=== PATIENT | male | born 1945 | race Caucasian/White ===

== ENCOUNTER 2022-11-26 12:24 | Observation (INO) | payer MEDICARE, SELFPAY ==
[2022-11-26] VITALS (23 sets, daily range): BP systolic 155–187; BP diastolic 84–110; PULSE 78–98; RESP 7–20; TEMP 36.5–36.8; O2SAT 91–97; BMI 24.7
--- NOTE | ~2022-11-26 | XR_ITS ---
EXAMINATION: XR barium swallow modified DATE: 11/27/2022 10:12 INDICATION: Slurred speech. Dysphagia. TECHNIQUE: The patient was given barium-containing material of multiple consistencies to swallow by t alexey speech pathologist while I performed fluoroscopy. Fluoroscopy exposure time was 1.8 minutes. The n umber of fluoroscopy images saved to the PACS was 1. Dose-area product was 1.243 Gy-cm^2. FINDINGS: There is slow movement during the oral stage. There was one episode of laryngeal penetration with thi n liquids. IMPRESSION: 1. One episode of laryngeal penetration with thin liquids. 2. Please refer to the speech therapy report for recommendations. Reviewed, dictated and finalized at location A.
--- NOTE | ~2022-11-26 | CT_ITS ---
EXAMINATION: CTA brain carotid DATE: 11/26/2022 15:05 INDICATION: CVA TECHNIQUE: Computed tomographic angiography (CTA) of the head was performed without and with 100 mL O mnipaque-350 intravenous contrast. CTA of the neck was performed with intravenous contrast. Automated exposure control and iterative reconstruction technique were employed. The dose-length product was 1 721.12 mGy-cm. Maximum intensity projection and volume rendered 3D-reconstructions were created by urvashi chowdary technologist on a separate workstation. COMPARISON: None. FINDINGS: CT BRAIN: No acute large vessel infarct, intracranial hemorrhage, mass, or hydrocephalus. Mild atrophy and mode rate chronic white matter change. Atherosclerotic intracranial calcification. CTA HEAD: No large vessel occlusion, aneurysm, high flow vascular malformation, nidus or extravasation. CTA NECK: Aortic arch and proximal great vessels: Atherosclerotic calcifications at the visualized aortic arch and proximal great vessels. Right common carotid, carotid bifurcation, and internal carotid artery: Calcified plaque at the bifur cation.There is 0% stenosis of the proximal right internal carotid artery relative to normal distal a rtery lumen diameter (NASCET criteria). Left common carotid, carotid bifurcation, and internal carotid artery: Calcified plaque at the bifurc ation.There is 0% stenosis of the proximal left internal carotid artery relative to normal distal art miguelito lumen diameter (NASCET criteria). Vertebral arteries: No significant plaque or stenosis. Right vertebral artery is dominant, Other findings: Cervical spondylosis. 1.4 cm left thyroid nodule that requires no additional evaluati on calcified pulmonary granulomas. Emphysematous change. IMPRESSION: No acute large vessel infarct. No large vessel occlusion. No significant carotid or vertebral stenosi s. Reviewed, dictated and finalized at location K. IMPRESSION: No acute large vessel infarct. No large vessel occlusion. No significant caroti d or vertebral stenosis.
--- NOTE | ~2022-11-26 | MR_ITS ---
EXAMINATION: MR brain/brain stem wo/w con DATE: 11/27/2022 09:56 INDICATION: Stroke with right-sided weakness, facial droop and slurred speech TECHNIQUE: Magnetic resonance imaging (MRI) of the brain and brainstem was performed without and with 15 mL Multihance intravenous contrast. Sequences included sagittal and axial T1-weighted SE, axial d iffusion-weighted FS SE, axial T2*-weighted GRE, axial 3D SWAN, axial T2-weighted FLAIR, and axial T2 -weighted FSE. Postcontrast axial and coronal T1-weighted SE was obtained. Apparent diffusion coeffic ient (ADC) maps were created. COMPARISON: None. FINDINGS: Region of restricted diffusion increased T2 signal consistent with acute infarct extending from the c ephalad aspect of the left lentiform nucleus into the posterior left frontal lobe perera radiata. No intracranial hemorrhage or abnormal intracranial mass lesion. There are additional scattered areas of nonspecific increased T2-weighted signal intensity in the cerebral white matter, predominantly invol ving the deep and periventricular white matter. There are no intraparenchymal signal abnormalities se en on the other pulse sequences. The ventricles are symmetric and normal in size. There are no abnorm al extra-axial fluid collections. Flow voids are seen in the cerebral arteries on the T2-weighted seq uences consistent with their expected patency. Right vertebral artery is dominant. Mild mucosal thick ening in the paranasal sinuses. Visualized orbits and soft tissues are unremarkable. There are no are as of abnormal enhancement on the post contrast images. IMPRESSION: 1. Acute infarct extending from the left lentiform nucleus into the posterior left frontal lobe coron a radiata. Reviewed, dictated and finalized at location A. IMPRESSION: 1. Acute infarct extending from the left lentiform nucleus into the posterior l eft frontal lobe perera radiata.
[2022-11-26 12:46] LABS: Glucose Point of Care 99 mg/dl (65-105)
--- NOTE | 2022-11-26 12:47 | ED.NEUROSD ---
HPI - Neuro Symptoms/Deficit General Chief Complaint: Suspected CVA Stated Complaint: possible cva Time Seen by Provider: 11/26/22 12:31 History of Present Illness HPI Narrative: 77-year-old male presented to the emergency department for evaluation for slurred speech right facial droop and right-sided weakness that has been ongoing since . Patient states symptoms started midday on and have potentially been getting worse. Patient states that he did not present to the emergency department because he was suspecting dehydration. Patient has no prior history of CVA. Patient denies any prior history of high cholesterol hypertension or diabetes. Family states that the patient does not have frequent follow-up with physicians. Related Data Home Medications Medication Instructions Recorded Confirmed No Home Medications 11/26/22 11/26/22 Allergies Allergy/AdvReac Type Severity Reaction Status Date / Time No Known Allergies Allergy Verified 11/26/22 12:26 Review of Systems Review of Systems: All systems reviewed & are unremarkable except as noted in HPI and below PMFSH Social History Social History Smoking status: Never smoker Second hand tobacco smoke exposure: No Alcohol intake: never Substance use: never Substance use type: does not use Lack of Transportation: No Lack of Food: Never True Current Housing: I Have Housing Concerned About Future Housing: No Difficulty Paying Gas/Electric Bills: No Difficulty Paying for Meds: No Currently Unemployed: No Education: High School Diploma/GED Difficulty w/ Childcare or Family Care: No Spiritual care concerns: No Exam Narrative: APPEARANCE: no pain, no distress, well-nourished. HEAD: normocephalic, atraumatic. EYES: PERRLA/EOMI, conjunctivae clear. NOSE: Normal no drainage NECK: Supple. No adenopathy, no masses. RESPIRATORY: Airway patent, respirations nonlabored. Clear to auscultation bilaterally, no rales, rhonchi, wheezing. CARDIOVASCULAR: Regular rate and rhythm without murmurs rubs or gallops. ABDOMINAL: Soft, nontender, nondistended, normal bowel sounds MUSCULOSKELETAL: Moves all extremities. Strength/ROM intact, No edema, No calf tenderness. NEURO: Alert. Cranial nerves II through XII intact. Slurred speech, right facial droop, right ataxia and weakness in the upper and lower extremity. SKIN: Warm, dry. Normal Color Course Course Emergency Course: 77-year-old male presented the ED for evaluation of right facial droop and right arm weakness but was far outside the window for tPA. Patient was afebrile with no leukocytosis. Patient's INR was 1.1. Patient's chemistries are similar to his baseline. UA showed no evidence of infection. Head CT showed no acute stroke or large thrombus. Patient's NIH score was 10. Case was discussed with neurology and they are comfortable with the plan to admit the patient and they will see the patient as consult. Case was discussed with the hospitalist and patient was accepted for admission. MRI was ordered at time of admission. Patient and family were updated on the results of the work-up and plan for admission. All questions concerns were addressed. Vital Signs Vital signs: Vital Signs Respiratory Rate 7 L 11/26/22 12:36 Temperature 98.2 F 11/26/22 12:40 Pulse Rate 89 11/26/22 17:42 Respiratory Rate 20 11/26/22 17:42 Blood Pressure 166/106 H 11/26/22 17:42 Pulse Oximetry 95 11/26/22 17:42 Oxygen Delivery Room Air 11/26/22 12:40 MDM - Neuro Symptoms/Deficit Lab Data 11/26/22 12:52 11/26/22 12:52 Labs: Lab Results 11/26/22 11/26/22 11/26/22 Range/Units 12:38 12:52 12:52 WBC 6.3 (4.5-10.0) K/mm3 RBC 5.80 (4.6-6.20) M/mm3 Hgb 17.1 (14.0-18.0) g/dL Hct 50.6 (42.0-52.0) % MCV 87.2 (80-100) fl MCH 29.5 (26-34) pg MCHC 33.8 (32-36) g/dl RDW 13.2 (11.5-14.5) % Plt Count 27
[2022-11-26 13:00] LABS: Basophils Percent Auto 0.5 % (0.2-1.2); Eosinophils Absolute Auto 0.1 K/mm3 (0-0.3); Hematocrit 50.6 % (42.0-52.0); Hemoglobin 17.1 g/dL (14.0-18.0); Immature Granulocyte Absolute 0.01 K/mm3 (0.00-0.031); Immature Granulocyte Percent A 0.2 % (0-0.5); Lymphocytes Absolute Auto 1.36 K/mm3 (0.9-3.2); Lymphocytes Percent Auto 21.7 % (18.3-44.2); Mean Corpuscular HGB Conc 33.8 g/dl (32-36); Mean Corpuscular Hemoglobin 29.5 pg (26-34); Mean Corpuscular Volume 87.2 fl (80-100); Mean Platelet Volume 9.4 fl (7.4-10.4); Monocytes Absolute Auto 0.6 K/mm3 (0.1-0.6); Monocytes Percent Auto 9.7 % (2.6-8.5); Neutrophils Absolute Auto 4.2 K/mm3 (1.3-6.7); Neutrophils Percent Auto 66.9 % (45.5-73.1); Platelet Count Result 274 k/mm3 (150-375); Red Cell Distribution Width 13.2 % (11.5-14.5); White Blood Count 6.3 K/mm3 (4.5-10.0)
[2022-11-26 13:10] LABS: INR 1.1; Prothrombin Time 13.9 Seconds (11.1-14.7)
[2022-11-26 13:11] LABS: Partial Thromboplastin Time 21.9 SECONDS (22.3-36.8)
[2022-11-26 13:13] LABS: Appearance Urine Clear (Clear); Bilirubin Urine Negative (Negative); Blood Urine Negative (Negative); Color Urine Yellow (Yellow); Glucose Urine UA Negative (Negative); Ketones Urine Trace mg/dL (Negative); Leukocyte Esterase Ur Negative LEU/UL (Negative); Nitrate Urine Negative (Negative); Protein Urine Negative (Negative); Specific Grav Ur 1.007 (1.001-1.035)
[2022-11-26 13:15] LABS: Alanine Aminotransferase 44 U/L (6-50); Albumin Level 4.8 g/dL (3.5-5.1); Alkaline Phosphatase 77 U/L (38-126); Anion Gap 12 mmol/L (8-16); Aspartate Amino Transferase 34 U/L (17-59); Bilirubin,Total 2.1 mg/dL (0.2-1.3); Blood Urea Nitrogen 9 mg/dL (9-20); Calcium 9.7 mg/dL (8.4-10.2); Carbon Dioxide 26 mmol/L (22-30); Chloride 101 mmol/L (98-107); Glucose 102 mg/dL (65-110); Potassium 3.7 mmol/L (3.4-5.0); Sodium 139 mmol/L (137-145)
[2022-11-26 13:25] LABS: Add Urine Microscopic? NO
[2022-11-26 14:27] LABS: Estimated CRCL calculation 86 ml/min; Estimated Glomerular Filt Rate > 60
[2022-11-26] MEDS: ASPIRIN 81 MG CHEWABLE TABLET 324 MG PO (15:55)
--- NOTE | 2022-11-26 16:00 | PM.IMHP ---
H&P: HPI History of Present Illness Date/Time: 11/26/22 16:00 Chief Complaint: Right-sided weakness, facial droop, slurred speech. Narrative: This is a very pleasant 77-year-old male with no reported medical history who presented to the emergency department from home for evaluation of right-sided weakness, facial droop, and slurred speech. The patient provides the following history. He has not been to a doctor for many years. He is typically very active and independent; last week he and his drove to [place] to berry picker and antique sewing machine from a relative. Three days ago on he took his to the chiropractor and he seemed to be just fine at that time. Later on in the afternoon while they were having a conversation the noticed that his speech seemed to be slurred and that he was having occasional difficulties getting out the words that he wanted to say. His speech issues improved as the day progressed but never fully resolved. On Sunday he noticed weakness in the right arm and leg and he seemed to be having difficulties walking correctly. Today his speech was more slurred and he had evidence of right-sided mouth droop and he was brought in for evaluation. Initially the patient thought he was dehydrated as he tends not to drink much water and apparently that is why he had not come in earlier. He denies syncope, near syncope, auditory and visual changes, paresthesias, and difficulty swallowing. He also denies palpitations and sensations of racing heart. He has not noticed any swelling of the lower legs and denies calf pain. He has no known history of hypertension, hyperlipidemia, cardiac disease or dysrhythmia, or diabetes. In the ED: Blood pressure was 183/101 on arrival to triage and it has been consistently in the 160s to 180 systolic. Aside from a total bilirubin of 2.1, his labs were really unremarkable. CTA of the head and neck showed no acute large vessel infarct, large vessel occlusion, or significant carotid or vertebral stenosis. Mild atrophy, moderate chronic white matter change, and atherosclerotic intracranial calcifications were noted. He was given a dose of aspirin in the emergency department and he is being admitted in this setting for close monitoring, further workup, and neurology consultation. Review of Systems Review of Systems: Twelve systems were reviewed. No fever, chills, or sweats. He had COVID a few months ago and has been feeling well since that time. No exertional chest pain shortness a breath. No syncope or near syncope. No nausea, vomiting, diarrhea, or dysuria. No rash or pruritus. He denies abdominal pain. No dysuria. Except as documented, all other systems were reviewed and are negative. [facility] Past Medical History Medical History (Updated 11/26/22 @ 22:14 by Re Jansen PA-C) Skin cancer Surgical History Surgical History (Updated 11/26/22 @ 22:14 by Re Jansen PA-C) Status post surgical removal of malignant neoplasm of skin Scalp. Family History Family History (Updated 11/26/22 @ 22:14 by Re Jansen PA-C) Mother Diabetes mellitus Grandparent Cerebrovascular accident Social History Social History (Updated 11/26/22 @ 22:16 by Re Jansen PA-C) Social History: Surrogate medical decision maker: Araceli Rolle, spouse. Code status: Full code. Smoking status: Former smoker Second hand tobacco smoke exposure: No Additional smoking assessment comments: Remote smoker, quit 40 years ago. Alcohol intake: never Substance use: never Substance use type: does not use Lack of Transportation: No Lack of Food: Never True Current Housing: I Have Housing Concerned About Future Housing: No Difficulty Paying Gas/Electric Bills: No Difficulty Paying for Meds: No Currently Unemployed: No Education: High School Diploma/GED Difficulty w/ Childcare or Family Care: No Additional living arrangements comments: Lives with spouse in [facility]
--- NOTE | 2022-11-26 18:33 | PC.NURSE ---
This patient, Sheng Rolle, was admitted to Medical Room 343-01. Patient/family oriented to hospital policies and general routines including ID bracelet, bed and alarms, visiting hours, pain management, procedures, bathroom and other care routines, personal items, smoking policy, room service/diet, and visiting hours. Information on how to activate the Rapid Response Team has been discussed. Patient/Family are encouraged to report perceived risks to care and to ask questions if they do not understand what they are told or what they should do.
--- NOTE | 2022-11-26 22:20 | ECG_ITS ---
Measurements Intervals [place] Rate: 91 P: 2 RI: 191 QRS: -23 QRSD: 112 T: 0 QT: 362 QTc: 446 Interpretive Statements SINUS RHYTHM BORDERLINE LEFT AXIS DEVIATION [QRS AXIS < -20] PREVIOUS ANTEROSEPTAL WA ABNORMAL ECG NO PREVIOUS ECG AVAILABLE FOR COMPARISON Electronically Signed On 11-27-2022 7:02:23 CDT by Regulo Owens M.D.
[2022-11-27] VITALS (10 sets, daily range): BP systolic 148–175; BP diastolic 86–102; PULSE 76–97; RESP 18–20; TEMP 36.7–36.8; O2SAT 94–97
[2022-11-27 06:09] LABS: Potassium 3.6 mmol/L (3.4-5.0)
[2022-11-27 06:15] LABS: Anion Gap 10 mmol/L (8-16); Blood Urea Nitrogen 12 mg/dL (9-20); Calcium 9.3 mg/dL (8.4-10.2); Carbon Dioxide 27 mmol/L (22-30); Chloride 102 mmol/L (98-107); Cholesterol 202 mg/dL (0-200); Estimated CRCL calculation 86 ml/min; Estimated Glomerular Filt Rate > 60; Glucose 87 mg/dL (65-110); HDL Direct 32 mg/dL; Magnesium 2.1 mg/dL (1.6-2.3); Sodium 139 mmol/L (137-145); Triglycerides 138 mg/dL (<150)
[2022-11-27 06:19] LABS: LDL Cholesterol Direct 132 mg/dL
[2022-11-27 07:18] LABS: Thyroid Stimulating Hormone Reflex 0.775 uIU/mL (0.465-4.68)
--- NOTE | 2022-11-27 09:28 | PM.IMPN ---
Progress Note: A&P Assessment and Plan (1) Acute CVA (cerebrovascular accident): Code(s): I63.9 - Cerebral infarction, unspecified Status: Acute Assessment and Plan: Patient presents with right-sided mouth droop, slurred speech, difficulties with word finding, and right-sided weakness and ataxia. Symptoms started on and well outside the window for tPA. CTA of the head and neck did not show any evidence of stroke or large vessel occlusion but noted moderate chronic white matter change in atherosclerotic intracranial calcifications. Blood pressures have also been running quite high which puts him at risk for stroke. No known history of cardiac dysrhythmia and he denies symptoms of such though will continue to monitor closely on telemetry. Brain MRI shows acute infarct extending from left lentiform nucleus to posterior left frontal lobe perera radiata. echocardiogram without ASD or PFO. ASA 325 mg PO given in ED and pt continued on aspirin 81 mg daily. Plavix 300 mg PO x1 given today, continue plavix 75 mg PO daily x 6 weeks. lipid panel- LDL 132, triglycerides 138, HDL 32. Lipitor 40 mg PO daily started. fasting glucose 89 and stable. Modified swallow study completed- bite sized, regular thin liquid diet. Heart healthy. Continue neurologic checks q.4 hours. PT/OT/ST consulted. Neurology also consulted for their input. (2) Hypertension: Code(s): I10 - Essential (primary) hypertension Status: Acute Assessment and Plan: Blood pressures have been running in the 160s to 180s systolic consistently. Stroke symptoms started on of last week. Start losartan 50 mg PO daily PRN hydralazine IV 10 mg SBP>185. Avoid hypotension. (3) Serum total bilirubin elevated: Code(s): R17 - Unspecified jaundice Status: Acute Assessment and Plan: Total bilirubin is 2.1, may be Gilbert's. Abdominal exam is benign. Repeat CMP tomorrow. No jaundice. (4) Hyperlipidemia: Code(s): E78.5 - Hyperlipidemia, unspecified Status: Acute Assessment and Plan: As above. Lipitor high-dose initiated. Plan CODE STATUS: FULL CODE Discharge disposition: from home. PT/OT recommendations appreciated. Time Spent With Patient Time: I discussed extensively with the patient and plan of care, goals of care, lifestyle modifications, diet, and medications. Time with patient: 25 - 35 minutes Subjective Date/time seen: 11/27/22 09:28 Interval history: Patient reports slurred speech and weakness to right arm and leg are unchanged. His is at bedside and reports he has some trouble finding words. No s/s coughing with eating or drinking. Modified swallow evaluation was without aspiration signs. He has not seen a primary care provider in more than 20 years. Review of Systems Review of Systems: All systems reviewed & are unremarkable except as noted in HPI and below Exam Narrative: General: Well-developed, nontoxic-appearing adult male lying in bed. HEENT: Normocephalic. Atraumatic. PERRL, EOMI. Sclera anicteric. Oral mucosa moist. Oropharynx clear. Neck: Supple. No carotid bruits. Respiratory: Lungs are clear to auscultation bilaterally. RR regular and unlabored. Cardiovascular: Regular rate and rhythm with S1-S2. No significant murmur. Gastrointestinal: Abdomen is soft, nontender, and nondistended with positive bowel sounds. Skin: Warm and dry. Scar on the scalp from prior resection of skin cancer. Scattered lesions on the face and scalp which may very well be skin cancer. He has dry and flaking skin with some evidence of seborrhea as well. Extremities: No cyanosis, clubbing, or edema. Radial and pedal pulses intact. No knots or cords. Neurological: Alert and oriented x4. Cranial nerves 2-12 intact. Speech is slurred with evidence of word-finding difficulties. Mild right-sided mouth droop. No lid lag. he has mild drift wit
--- NOTE | 2022-11-27 09:44 | PCSTNOTE ---
Please refer to the Bedside Swallow Evaluation/Communication in the EMR. Please note, silent aspiration cannot be ruled out at bedside.
--- NOTE | 2022-11-27 12:52 | WPDNEURCNPN ---
Assessment and Plan Assessment and plan (1) Acute CVA (cerebrovascular accident): Code(s): I63.9 - Cerebral infarction, unspecified Status: Acute Plan Acute subcortical stroke involving the left lentiform nucleus posterior left frontal lobe coronal radiata with neurological deficit as documented, CTA of the brain is negative for any acute occlusion of major territorial vessels will need the aspirin and Plavix for 6 weeks in addition to control of the hypertension and the cholesterol along with physical therapy evaluation. will need the echocardiogram as well Consult date: 11/27/22 HPI: Sheng Rolle is a 77 year old male admitted to the hospital through the emergency room for the evaluation of slurred speech with right facial droop and right-sided weakness ongoing since but with gradual worsening though he did not present to the emergency room as he suspected it was related to his dehydration. Patient has not been taking any home medication he is not allergic to any medications, he is not alcohol intake and does not smoke on [place] exam in the emergency room exam was with slurred speech right facial droop right-sided ataxia and weakness of the upper and lower extremity again on the right side vital signs were normal except blood pressure 166/106 routine lab was normal stroke scale was only 1 , head neck CTA was negative with no involvement of the any large vessel, but MRI today documented acute infarct extending from the left lentiform nucleus into the posterior left frontal lobe coronal radiata that is subcortical infarct PMFSH Past Medical History Medical History (Updated 11/26/22 @ 22:14 by Re Jansen PA-C) Skin cancer Surgical History Surgical History (Updated 11/26/22 @ 22:14 by Re Jansen PA-C) Status post surgical removal of malignant neoplasm of skin Scalp. Family History Family History (Updated 11/26/22 @ 22:14 by Re Jansen PA-C) Mother Diabetes mellitus Grandparent Cerebrovascular accident Social History Social History (Updated 11/26/22 @ 22:16 by Re Jansen PA-C) Social History: Surrogate medical decision maker: Araceli Rolle, spouse. Code status: Full code. Smoking status: Former smoker Second hand tobacco smoke exposure: No Additional smoking assessment comments: Remote smoker, quit 40 years ago. Alcohol intake: never Substance use: never Substance use type: does not use Lack of Transportation: No Lack of Food: Never True Current Housing: I Have Housing Concerned About Future Housing: No Difficulty Paying Gas/Electric Bills: No Difficulty Paying for Meds: No Currently Unemployed: No Education: High School Diploma/GED Difficulty w/ Childcare or Family Care: No Additional living arrangements comments: Lives with spouse in [place]. Additional occupation/education comments: Retired from [employer]. Spiritual care concerns: No Meds Home Medications and Allergies Home Medications Medication Instructions Recorded Confirmed Type No Home Medications 11/26/22 11/26/22 History Allergies Allergy/AdvReac Type Severity Reaction Status Date / Time No Known Allergies Allergy Verified 11/26/22 12:26 Vital Signs Vital Signs - 24 hr 11/26/22 14:08 11/26/22 13:00 11/26/22 13:15 Temperature Pulse Rate 80 92 86 Respiratory Rate 16 15 18 Blood Pressure 155/107 H Pulse Oximetry 94 96 Oxygen Delivery 11/26/22 13:30 11/26/22 13:32 11/26/22 13:45 Temperature Pulse Rate 85 80 81 Respiratory Rate 17 15 15 Blood Pressure 155/107 H Pulse Oximetry 95 91 94 Oxygen Delivery 11/26/22 14:00 11/26/22 14:15 11/26/22 14:16 Temperature Pulse Rate 87 82 Respiratory Rate 19 14 Blood Pressure 162/104 H Pulse Oximetry 93 93 92 Oxygen Delivery 11/26/22 14:30 11/26/22 15:07 11/26/22 15:08 Temperature Pulse Rate 83 80 Respiratory
[2022-11-27] MEDS: CLOPIDOGREL BISULFATE 300 MG TABLET PO (14:21)
[2022-11-27] MEDS: ATORVASTATIN 40 MG TABLET PO (14:21)
[2022-11-27] MEDS: LOSARTAN POTASSIUM 50 MG TABLET PO (18:27)
--- NOTE | 2022-11-27 22:27 | ECHO_ITS ---
Patient Info Name: Sheng Rolle Age: 77 years : 1945 Gender: Male Ht: 72 in Wt: 182 lbs BSA: 2.05 m2 HR: 88 bpm BP: 148 / 89 mmHg Technical Quality: Fair Exam Date: 11/27/2022 11:17 AM Exam Location: [facility] Pulmonary Exam Room: 343 Patient Status: Inpatient Admit Date: 11/26/2022 Staff Ordering Physician: Re Jansen PA-C Carburetor Expert: Radha Herrera RDCS Attending Provider: Jamey Mcclain MD Referring Physician: Justyna HAQUE; Exam Type: CA echo doppler w bubble study Study Info Indications - elevated blood pressure stroke symptoms Complete two-dimensional, color flow and Doppler transthoracic echocardiogram is performed with agitated saline. Contrast/Agitated Saline Contrast/Ag. Saline: Agitated Saline Amount: 20.00 ml Administered By: Flora Gunter RDCS Existing IV Access: Yes Summary 1. Left ventricular chamber dimension is normal. 2. Ventricular septum is sigmoid shaped. No LVOT obstruction. 3. Left ventricular systolic function is normal, estimated at 60-65%. 4. The left ventricular diastolic function is grade I diastolic dysfunction. 5. E/e' 13 is mildly elevated. 6. There is mild aortic valve sclerosis. 7. There is trace mitral valve regurgitation. 8. There is trace tricuspid valve regurgitation. 9. No pulmonary hypertension, estimated pulmonary arterial systolic pressure is 24 mmHg. Left Ventricle E/e' 13 is mildly elevated. Ventricular septum is sigmoid shaped. No LVOT obstruction. Left ventricular chamber dimension is normal. Left ventricular systolic function is normal, estimated at 60-65%. The left ventricular diastolic function is grade I diastolic dysfunction. Right Ventricle Right ventricular chamber dimension is normal. Right ventricular systolic function is normal. Left Atria Left atrial chamber dimension is normal. Right Atria Right atrial chamber dimension is normal. Atrial Septum Agitated saline injection with and without valsalva maneuber opacified right side cardiac chambers without shunt to left side cardiac chambers. Intact interatrial septum visualized by 2D and agitated saline imaging. Aortic Valve The aortic valve is trileaflet. There is mild aortic valve sclerosis. There is no aortic valve stenosis. There is no aortic valve regurgitation. Pulmonic Valve There is no pulmonic regurgitation. Mitral Valve There is no mitral valve stenosis. There is trace mitral valve regurgitation. Tricuspid Valve There is trace tricuspid valve regurgitation. No pulmonary hypertension, estimated pulmonary arterial systolic pressure is 24 mmHg. Pericardium/Pleural There is no pericardial effusion. Inferior Vena Cava Normal inferior vena cava with >50% collapse upon inspiration consistent with normal right atrial pressure, 5 mmHg. Aorta The aortic root size at the sinus of Valsalva is normal. Left Ventricular Outflow Tract Name Value Normal LVOT 2D LVOT Diameter 2.1 cm LVOT Doppler LVOT Peak Gradient 5 mmHg LVOT Mean Gradient
[2022-11-28] VITALS (12 sets, daily range): BP systolic 148–200; BP diastolic 86–114; PULSE 69–116; RESP 16–18; TEMP 36.7–36.8; O2SAT 93–98
[2022-11-28 05:55] LABS: Alanine Aminotransferase 33 U/L (6-50); Albumin Level 4.2 g/dL (3.5-5.1); Alkaline Phosphatase 65 U/L (38-126); Anion Gap 8 mmol/L (8-16); Aspartate Amino Transferase 30 U/L (17-59); Bilirubin,Total 2.1 mg/dL (0.2-1.3); Blood Urea Nitrogen 13 mg/dL (9-20); Calcium 9.2 mg/dL (8.4-10.2); Carbon Dioxide 29 mmol/L (22-30); Chloride 101 mmol/L (98-107); Estimated CRCL calculation 86 ml/min; Estimated Glomerular Filt Rate > 60; Glucose 95 mg/dL (65-110); Potassium 3.6 mmol/L (3.4-5.0); Sodium 138 mmol/L (137-145)
[2022-11-28] MEDS: ASPIRIN 81 MG CHEWABLE TABLET PO (10:54)
[2022-11-28] MEDS: ATORVASTATIN 40 MG TABLET PO (10:55)
[2022-11-28] MEDS: CLOPIDOGREL BISULFATE 75 MG TABLET PO (10:55)
[2022-11-28] MEDS: LOSARTAN POTASSIUM 50 MG TABLET PO ×2 (10:55→17:47)
--- NOTE | 2022-11-28 16:39 | PM.IMPN ---
Progress Note: A&P Assessment and Plan (1) Acute CVA (cerebrovascular accident): Code(s): I63.9 - Cerebral infarction, unspecified Status: Acute Assessment and Plan: Patient presents with right-sided mouth droop, slurred speech, difficulties with word finding, and right-sided weakness and ataxia. Symptoms started on and well outside the window for tPA. CTA of the head and neck did not show any evidence of stroke or large vessel occlusion but noted moderate chronic white matter change in atherosclerotic intracranial calcifications. Blood pressures have also been running quite high which puts him at risk for stroke. 11/28 increase losartan to 100 mg p.o. daily. He may need 2nd agent if he continues to run high. P.r.n. hydralazine 10 mg q.6 hours p.r.n. for SBP greater than 185. No known history of cardiac dysrhythmia and he denies symptoms of such though will continue to monitor closely on telemetry. Brain MRI shows acute infarct extending from left lentiform nucleus to posterior left frontal lobe perera radiata. echocardiogram without ASD or PFO. ASA 325 mg PO given in ED and pt continued on aspirin 81 mg daily. Plavix 300 mg PO x1 given today, continue plavix 75 mg PO daily x 6 weeks. lipid panel- LDL 132, triglycerides 138, HDL 32. Lipitor 40 mg PO daily started. fasting glucose 89 and stable. Modified swallow study completed- bite sized, regular thin liquid diet. Heart healthy. Continue neurologic checks q.4 hours. PT/OT/ST consulted. Neurology also consulted for their input. (2) Hypertension: Code(s): I10 - Essential (primary) hypertension Status: Acute Assessment and Plan: Blood pressures have been running in the 160s to 180s systolic consistently. Stroke symptoms started on of last week. started losartan 50 mg PO daily on admission. 11/28 patient still with significant hypertension 190/100 manual and 160/114 automatic. Increase losartan to 100 mg p.o. daily PRN hydralazine IV 10 mg SBP>185. Avoid hypotension. (3) Serum total bilirubin elevated: Code(s): R17 - Unspecified jaundice Status: Acute Assessment and Plan: Total bilirubin is 2.1, may be Gilbert's. Abdominal exam is benign. Repeat CMP tomorrow. No jaundice. (4) Hyperlipidemia: Code(s): E78.5 - Hyperlipidemia, unspecified Status: Acute Assessment and Plan: As above. Lipitor high-dose initiated. Plan CODE STATUS: FULL CODE Discharge disposition: from home and lives with . Care coordination arranging outpatient services. Time Spent With Patient Time with patient: 25 - 35 minutes Subjective Date/time seen: 11/28/22 16:39 Interval history: Patient wants to go home. He denies worsening speech, vision changes, worsening weakness or paresthesia to right upper extremity or right lower extremity. denies worsening word-finding or aphasia. Blood pressure has been elevated 148/86 to 160/114. Review of Systems Review of Systems: All systems reviewed & are unremarkable except as noted in HPI and below Exam Narrative: General: Well-developed, nontoxic-appearing adult male lying in bed. HEENT: Normocephalic. Atraumatic. PERRL, EOMI. Sclera anicteric. Oral mucosa moist. Neck: Unremarkable Respiratory: Lungs are clear to auscultation bilaterally. RR regular and unlabored. Cardiovascular: Regular rate and rhythm with S1-S2. No significant murmur. Normal sinus rhythm 91 beats per minute on telemetry Gastrointestinal: Abdomen is soft, nontender, and nondistended with positive bowel sounds. Skin: Warm and dry. Scar on the scalp from prior resection of skin cancer. Scattered lesions on the face and scalp which may very well be skin cancer. He has dry and flaking skin with some evidence of seborrhea as well. Extremities: No cyanosis, clubbing, or edema. Radial and pedal pulses intact. No knots or cords. Neurological: Sandra
[2022-11-28] MEDS: hydrALAZINE HCL 20 MG/ML VIAL 10 MG IV PUSH (17:46)
[2022-11-29] VITALS: PULSE 77
[2022-11-29 04:00] VITALS: PULSE 83
[2022-11-29 05:40] LABS: Hematocrit 47.9 % (42.0-52.0); Hemoglobin 16.3 g/dL (14.0-18.0); Mean Corpuscular Hemoglobin 29.3 pg (26-34); Mean Platelet Volume 9.4 fl (7.4-10.4); Platelet Count Result 264 k/mm3 (150-375); Red Blood Count 5.57 M/mm3 (4.6-6.20); Red Cell Distribution Width 12.6 % (11.5-14.5); White Blood Count 6.6 K/mm3 (4.5-10.0)
[2022-11-29 06:00] VITALS: BP 148/96; PULSE 90; RESP 16; TEMP 36.7; O2SAT 97
[2022-11-29 09:15] VITALS: PULSE 86
[2022-11-29] MEDS: ATORVASTATIN 40 MG TABLET PO (09:26)
[2022-11-29] MEDS: CLOPIDOGREL BISULFATE 75 MG TABLET PO (09:26)
[2022-11-29] MEDS: LOSARTAN POTASSIUM 100 MG TABLET PO (09:26)
[2022-11-29] MEDS: ASPIRIN 81 MG CHEWABLE TABLET PO (09:26)
[2022-11-29 12:00] VITALS: PULSE 101
--- NOTE | 2022-11-29 13:29 | PM.DS ---
DS: Admitting Diagnosis Discharge Date 11/29/22 Admitting Diagnosis CVA DS: Discharge Diagnosis Discharge Diagnosis (1) Acute CVA (cerebrovascular accident): Code(s): I63.9 - Cerebral infarction, unspecified Status: Acute Assessment and Plan: Patient presents with right-sided mouth droop, slurred speech, difficulties with word finding, and right-sided weakness and ataxia. Symptoms started on and well outside the window for tPA. CTA of the head and neck did not show any evidence of stroke or large vessel occlusion but noted moderate chronic white matter change in atherosclerotic intracranial calcifications. Blood pressures have also been running quite high which puts him at risk for stroke. 11/28 increase losartan to 100 mg p.o. daily. He may need 2nd agent if he continues to run high. P.r.n. hydralazine 10 mg q.6 hours p.r.n. for SBP greater than 185. No known history of cardiac dysrhythmia and he denies symptoms of such though will continue to monitor closely on telemetry. Brain MRI shows acute infarct extending from left lentiform nucleus to posterior left frontal lobe perera radiata. echocardiogram without ASD or PFO. ASA 325 mg PO given in ED and pt continued on aspirin 81 mg daily. Plavix 300 mg PO x1 given today, continue plavix 75 mg PO daily x 6 weeks. lipid panel- LDL 132, triglycerides 138, HDL 32. Lipitor 40 mg PO daily started. fasting glucose 89 and stable. Modified swallow study completed- bite sized, regular thin liquid diet. Heart healthy. Continue neurologic checks q.4 hours. PT/OT/ST consulted. Neurology also consulted for their input. (2) Hypertension: Code(s): I10 - Essential (primary) hypertension Status: Acute Assessment and Plan: Blood pressures have been running in the 160s to 180s systolic consistently. Stroke symptoms started on of last week. started losartan 50 mg PO daily on admission. 11/28 patient still with significant hypertension 190/100 manual and 160/114 automatic. Increase losartan to 100 mg p.o. daily PRN hydralazine IV 10 mg SBP>185. Avoid hypotension. stable. (3) Serum total bilirubin elevated: Code(s): R17 - Unspecified jaundice Status: Acute Assessment and Plan: Total bilirubin is 2.1, may be Gilbert's. Abdominal exam is benign. Repeat CMP tomorrow. No jaundice. (4) Hyperlipidemia: Code(s): E78.5 - Hyperlipidemia, unspecified Status: Acute Assessment and Plan: As above. Lipitor high-dose initiated. Plan CODE STATUS: FULL CODE Discharge disposition: from home and lives with . Care coordination arranging outpatient services. DS: Summary Hospital Course Hospital Course: This is a 77-year-old male with insignificant past medical history that presented to the ED on 11/26/2022 due to right-sided weakness, facial droop and slurred speech. On arrival to the ED patient's blood pressure was found to be 183/101. CTA of the head and neck with no acute large vessel infarct, large vessel occlusion or significant carotid or vertebral stenosis. patient was started on losartan due to elevated BP and p.r.n. hydralazine. MRI of the brain revealed acute infarct extending from the left lentiform nucleus to posterior left frontal lobe core and a Radi out. Echocardiogram without ASD or PFO. Patient started on 81 mg aspirin daily. Lipid panel- LDL 132, triglycerides 138, HDL 32. Lipitor 40 mg PO daily started. Patient started on Plavix say 5 mg p.o. daily for 6 weeks.SP, PT and OT consulted. patient struggling with speech and modified swallow study performed in recommended bite size, regular thin liquid diet for the patient. Neurology consulted on patient. Recommend follow-up with Neurology in 6 8 weeks. Patient receiving PT and OT home health as well as outpatient speech therapy. Time Spent with Patient Time attestation: Total time
--- NOTE | 2022-11-30 08:18 | PCSTNOTE ---
On 11/29, therapist saw patient for a 15 minute session; patient was consuming his breakfast meal and exhibited excessive mastication time. Patient repeatedly said, he must eat slowly, and not talk while eating. Patient was already chewing thoroughly, taking small bites and sips, and independently tucking chin down to swallow and did not need additional instruction by therapist. Due to the excessive consumption time, direct exercises could not be addressed. Scheduling conflicts prevented therapist return in a timely manner and therefore therapist did not charge for the session.
== END 2022-11-29 14:20 | disposition home health service (06) ==
LOC: ANHED 13:07 → ANH3MED 19:11
PROVIDERS: Nurse Practitioner Family; Physician Assistant; Admitting Provider Internal Medicine; Emergency Provider Emergency Medicine; Visit Provider Internal Medicine
DX: I63.9 Cerebral infarction, unspecified (principal); I11.9 Hypertensive heart disease without heart failure; R17 Unspecified jaundice; E78.5 Hyperlipidemia, unspecified; R29.710 NIHSS score 10; R13.10 Dysphagia, unspecified; I70.0 Atherosclerosis of aorta; R90.82 White matter disease, unspecified; R29.90 Unspecified symptoms and signs involving the nervous system; R03.0 Elevated blood-pressure reading, without diagnosis of hypertension; R94.31 Abnormal electrocardiogram [ECG] [EKG]; Z87.891 Personal history of nicotine dependence; Z82.3 Family history of stroke
CPT/HCPCS: 36415; 70496; 70498; 70553; 80048; 80053; 80061; 81003; 82948; 83735; 84443; 85025; 85027; 85610; 85730; 92522; 92610; 92611; 93005; 93306; 96374; 96375; 97110; 97112; 97116; 97161; 97165; 97530; 97535; 99285; A9270; A9577; G0378; J0360; Q9967

== ENCOUNTER 2023-03-23 10:30 | Outpatient (RCR) | payer MEDICARE, SELFPAY ==
[2023-01-23 14:24] VITALS: BP_SYST 90
--- NOTE | 2023-01-23 15:26 | OPREHPOC ---
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
--- NOTE | 2023-01-23 15:26 | PTOPEVAL1 ---
Assessment and note entered by Chace Martin, PT Evaluation Information Assessment Status Evaluation Diagnosis CVA Onset about 1 month ago Subjective Information Patient and report patient had a CVA in December and after stay in hospital and home health is now coming to outpatient therapy. The patient was using a wheeled walker, but now mainly using a small based quad cane and will go without in his house. Patient reports no falls and main concern is the R hand not the R leg. Reported Pain Level Pain Score 0: Self Report Assessment PT Clinical Summary Fabián is a 77 year old male coming into the clinic with a diagnosis of CVA resulting in R side weakness. Patient ambulating with small based quad cane, but believe he has potential to ambulate without any assistive device and improve strength, endurance, and balance to be equal to the L side. Physical therapy will work on improving the patient's deficits. Plan of Care Interventions Electrical Stimulation,Gait Training,Hot Pack/Cold Pack,Manual Therapy,Neuro Re-education,Patient/ Caregiver Education,Therapeutic Activities, Therapeutic Exercise,Ultrasound Other Interventions cupping, taping, IASTM. PT Services Indicated Yes Treatment Frequency and 2x/wk for 4 weeks Duration These treatments will address the objective and functional deficits as defined above. The patient will be advanced safely and appropriately in order for the patient to progress towards his/her prior level of function. Additional exercises will be introduced and as well as a comprehensive home exercise program upon discharge, if needed, ?to ensure carryover of functional gains achieved in the clinic. This treatment plan has been reviewed and agreement upon by the patient.
--- NOTE | 2023-01-23 15:35 | OTOPEVAL1 ---
Assessment and note entered by ROSEY Chen/Vinicio, CHT Evaluation Information Assessment Status Evaluation Diagnosis CVA Onset 11/23/22 Subjective Information He reports he is s/p acute care and home health OT /PT. He states he has residual right sided weakness that restricts his ability to use his hand to feed himself, tie shoes, do buttons, zippers, or reach and grab items. He states he is back to bathing and dressing himself with his 's supervision . He is unable to use the right hand to help wash himself or wash his hair. Reported Pain Level Pain Score 0: Self Report Assessment OT Clinical Summary Patient referred to outpatient OT s/p CVA with right sided deficits which impacts his ability to complete 2 handed tasks, reach/grasp items, and severely impacts any fine motor tasks. Skilled OT indicated to maximize functional use of the right UE through HEP instruction/progression, therapeutic exercise, adaptive ADL education/ rehearsal Plan of Care Interventions Therapeutic Exercise,Neuro Re-education, Therapeutic Activities,Hot Pack/Cold Pack,Self- Care/Home Management OT Services Indicated Yes Treatment Frequency and 2x/week for 4 weeks Duration These treatments will address the objective and functional deficits as defined above. The patient will be advanced safely and appropriately in order for the patient to progress towards his/her prior level of function. Additional exercises will be introduced and as well as a comprehensive home exercise program upon discharge, if needed, ?to ensure carryover of functional gains achieved in the clinic. This treatment plan has been reviewed and agreement upon by the patient.
--- NOTE | 2023-01-23 15:35 | OPREHPOC ---
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 Patient to be independent with instructed materials. Target Visit 8 OT Problem 2 OT Problem #2 Impaired Coordination OT Goal 1 Goal 1. Patient to be able to complete the 9-hole peg assessment. Target Visit 8 OT Problem 3 OT Problem #3 Impaired Range of Motion OT Goal 1 Goal 1. Patient to increase active ROM of the right shoulder to improve functional use during ADLs: - ER to be able to touch the back of his head to wash his hair - IR to be able to help with dressing and hygiene tasks - flexion to 130 to help with dressing and hygiene tasks Target Visit 8 OT Problem 4 OT Problem #4 Impaired Strength OT Goal 1 Goal 1. 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 Target Visit 8
--- NOTE | 2023-02-22 10:55 | OTOPPROG ---
Assessment and note entered by Fenrando Rahman, OTR/Vinicio, CHT Evaluation Information Assessment Status Progress Diagnosis CVA Onset 11/23/22 Subjective Information Patient reports he is now feeding himself finger foods with the right hand, still unable to use a utensil. He is now able to ring out a wash rag, reach and grab items, hang up his towel after his shower. He is now able to use the right hand to wash himself in the shower and wash his hair. Assessment OT Clinical Summary Patient referred to outpatient OT s/p CVA with right sided deficits. He has been working with OT x8 sessions. He is making excellent progress with functional right UE use. He is now using the right UE during ADLs, during functional reaching, and is now able to complete the 9-hole peg test (he was unable to pickling drum operator a peg at the initial evaluation). He continues to have residual deficits and continued skilled OT indicated to maximize functional use of the right UE. Plan of Care Interventions Therapeutic Exercise,Neuro Re-education, Therapeutic Activities,Hot Pack/Cold Pack,Self- Care/Home Management OT Services Indicated Yes Treatment Frequency and 2x/week for 4 weeks Duration These treatments will address the objective and functional deficits as defined above. The patient will be advanced safely and appropriately in order for the patient to progress towards his/her prior level of function. Additional exercises will be introduced and as well as a comprehensive home exercise program upon discharge, if needed, ?to ensure carryover of functional gains achieved in the clinic. This treatment plan has been reviewed and agreement upon by the patient.
--- NOTE | 2023-02-22 10:56 | OPREHPOC ---
Outpatient Therapy Plan of Care This is a Multidisciplinary Plan of Care that may contain components documented by all disciplines (PT, OT, and ST.) PT Problem 1 PT Problem #1 Knowledge Deficit PT Goal 1 Goal Independent with HEP Target Visit 8 PT Problem 2 PT Problem #2 Impaired Balance PT Goal 1 Goal able to nursing assoc single limb stance x 15 seconds on RLE, no UE support Target Visit 8 PT Goal 2 Goal 5 sit to stands in 15 seconds or less Target Visit 8 PT Problem 3 PT Problem #3 Impaired Strength PT Goal 1 Goal Increase R ankle dorsiflexion, knee flexion and extension to 5/5 Target Visit 8 PT Problem 4 PT Problem #4 Impaired Functional Mobil PT Goal 1 Goal Patient independent without assistive device Target Visit 8 OT Problem 1 OT Problem #1 Knowledge Deficit OT Goal 1 Goal 1. Patient to be independent with instructed materials. --OT POC UPDATE 02/22/23-- 1. Met, continue as HEP is progressed Target Visit 16 OT Problem 2 OT Problem #2 Impaired Coordination OT Goal 1 Goal 1. Patient to be able to complete the 9-hole peg assessment. --OT POC UPDATE 02/22/23-- 1. Met; Upgrade - Patient to be able to complete the 9-hole peg test in 4 minutes or less. Target Visit 16 OT Problem 3 OT Problem #3 Impaired Range of Motion OT Goal 1 Goal 1. Patient to increase active ROM of the right shoulder to improve functional use during ADLs: - ER to be able to touch the back of his head to wash his hair - IR to be able to help with dressing and hygiene tasks - flexion to 130 to help with dressing and hygiene tasks --OT POC UPDATE 02/22/23-- 1. Partially met; Continue to work on flexion Target Visit 16 OT Problem 4 OT Problem #4 Impaired Strength OT Goal 1
--- NOTE | 2023-02-22 11:31 | PTOPDC ---
Assessment and note entered by Chace Martin, PT Evaluation Information Assessment Status Discharge Diagnosis CVA Onset about 2 month ago Subjective Information Patient reports he is doing well with his exercises at home and he has been walking outside with his on uneven surfaces and that is really helping his balance and endurance. Patient reports no pain and that we was just reassessed by occupational therapy and will be continuing with occupational therapy on his R hand. Reported Pain Level Pain Score 0: Self Report Pain Score 3: Self Report Assessment PT Clinical Summary Fabián is a 77 year old male coming into the clinic with a diagnosis of CVA. Patient was evaluated on 01/23/23 and he has attended 8 visits. He has met his strength, balance, and functional mobility goals. Okay for discharge with HEP and walking program to continue working on his strength, balance, and endurance. Plan of Care PT Services Indicated No
--- NOTE | 2023-03-23 11:34 | OTOPPROG ---
Assessment and note entered by Fernando Rahman, ROSEY/Vinicio, CHT OT Progress Update 03/23/23 Diagnosis CVA Onset 11/23/22 Subjective Information Patient reports his arm is getting better all the time . He has been working on his HEP - fine motor tasks as well as cane exercises for the shoulder. They also got a haritha last week for shoulder stretching. The past month has been focused a lot on working on the shoulder as he has a lot of tightness from nonuse. His shoulder has made some progress with functional flexibility of the shoulder, continues to be guarded due to tightness and discomfort with stretching. 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 Functional fine motor coordination is also improving as measured by the 9-hole peg test. Last month it took him about 8.5 minutes to finish the test and today he completes in 2 min and 20 seconds. Assessment OT Clinical Summary Patient referred to outpatient OT s/p CVA with right sided deficits. He has been working with OT x15 sessions. He is making slow, steady progress with functional right UE use. He is using the hand for more ADL tasks, but continues to be limited by shoulder tightness and weakness. He is independent with his current HEP for the shoulder - pulleys and cane. Plan to have him continue his home program for another month and follow up for assessment and to progress the shoulder HEP to more active/strengthening. Plan of Care Interventions Therapeutic Exercise,Neuro Re-education, Therapeutic Activities,Hot Pack/Cold Pack,Self- Care/Home Management OT Services Indicated Yes Treatment Frequency and Follow up in 1 month. Duration These treatments will address the objective and functional deficits as defined above. The patient will be advanced safely and appropriately in order for the patient to progress towards his/her prior level of function. Additional exercises will be introduced and as well as a comprehensive home exercise program upon discharge, if needed, ?to ensure carryover of functional gains achieved in the clinic. This treatment plan has been reviewed and agreement upon by the patient.
--- NOTE | 2023-04-18 09:00 | PCOTNOTE ---
This treatment is being continued on visit number [id number]. Please see documentation on both accounts to view progress. Completed interventions, outcomes, and problems have been marked as Inactive to facilitate the copying of the Care plan routine for recurring accounts.
== END 2023-04-16 11:28 | disposition home or self-care (01) ==
LOC: ANHOT 10:30
PROVIDERS: Visit Provider Student in an Organized Health Care Education/Training Program
DX: I63.9 Cerebral infarction, unspecified (principal)
CPT/HCPCS: 97110; 97112; 97140; 97161; 97166; 97530

== ENCOUNTER 2023-04-27 14:12 | Outpatient (RCR) | payer MEDICARE, SELFPAY ==
[2023-04-16 11:29] VITALS: BP_SYST 90
--- NOTE | 2023-04-18 09:01 | PCOTNOTE ---
The treatment documented on this account is a continuation of the treatment documented on visit number [id number]. Please see documentation on both accounts to view progress. The Plan of Care has been transitioned and updated within the new V#. I have addressed and agree with the discipline specific Problems, Interventions, and Goals for the current certification period. Completed interventions, outcomes, and problems have been marked as Inactive to facilitate the copying of the Care plan routine for recurring accounts.
--- NOTE | 2023-04-27 14:24 | OTOPDC ---
Assessment and note entered by Fernando Rahman, OTR/Vinicio, [facility] OT D/C 04/27/23 Assessment Status Discharge Diagnosis CVA Onset 11/23/22 Subjective Information Patient reports he has been working on his HEP. States he is now using the right arm to wash himself and his hair in the shower. He still feeds himself with the left hand because it's just easier . His shoulder is measuring the same as a month ago, unfortunately. The hand has made some progress with functional coordination and strength. Reported Pain Level Pain Score 0: Self Report Additional Pain Score Comments No pain at rest. 2/10 pain in the right shoulder with active ROM. Assessment OT Clinical Summary Patient referred to outpatient OT s/p CVA with right sided deficits. At month ago the patient was reaching a progress plateau and it was decided for him to work on his HEP independently x5 weeks and then return and see how things progress. Today the shoulder is measuring the same ROM measurements. He continues to use and favor the left hand for ADLs. At this time we are going to discharge from OT services with patient independent with his HEP. Plan of Care OT Services Indicated No
== END 2023-04-30 14:35 | disposition home or self-care (01) ==
LOC: ANHOT 14:12
PROVIDERS: PCP Family Medicine; Visit Provider Student in an Organized Health Care Education/Training Program
DX: I63.9 Cerebral infarction, unspecified (principal)
CPT/HCPCS: 97110